=== PATIENT | female | born 1980 | race Native Hawaiian/Other Pacific Islander ===

== ENCOUNTER 2018-11-18 09:33 | Emergency (ER) | payer OTHER ==
[2018-11-18 09:51] VITALS: BP 125/84; O2SAT 98
[2018-11-18 11:13] LABS: BASO % 0.3 % (0.0-2.0); EOS # 0.1 K/uL (0.0-0.7); EOS % 2.4 % (0.0-4.0); LYMPH # 1.3 K/uL (1.0-4.3); LYMPH % 22.7 % (20.0-40.0); MEAN CELL VOLUME 91.2 fl (81.0-99.0); MEAN CORPUSCULAR HEMOGLOBIN 31.8 pg (27.0-31.0); MEAN CORPUSCULAR HGB CONC 34.9 g/dL (33.0-37.0); MEAN PLATELET VOLUME 8.5 fl (7.2-11.7); MONO # 0.4 K/uL (0.0-0.8); MONO % 6.6 % (0.0-10.0); NEUT # 3.9 K/uL (1.8-7.0); RBC 4.4 Mil/uL (3.80-5.20); RED CELL DISTRIBUTION WIDTH 13.5 % (11.5-14.5); WHITE BLOOD COUNT 5.8 K/uL (4.8-10.8)
[2018-11-18 11:29] LABS: ALB/GLOB RATIO 1.4 (1.0-2.1); ALBUMIN 4.6 g/dL (3.5-5.0); ALT/SGPT 24 U/L (9-52); AST/SGOT 27 U/L (14-36); BLOOD UREA NITROGEN 7 mg/dl (7-17); CALCIUM 9.3 mg/dL (8.4-10.2); GFR NON-AFRICAN AMERICAN > 60
[2018-11-18 11:32] LABS: SQUAMOUS EPITHIAL 1 /hpf (0-5); URINE BACTERIA RARE (<OCC); URINE BILIRUBIN NEGATIVE (NEGATIVE); URINE BLOOD LARGE (NEGATIVE); URINE CLARITY CLEAR (Clear); URINE COLOR STRAW (YELLOW); URINE GLUCOSE (UA) NEG (NEGATIVE); URINE LEUKOCYTE ESTERASE NEG Leu/uL (Negative); URINE PROTEIN NEGATIVE (NEGATIVE); URINE UROBILINOGEN 0.2-1.0 mg/dL (0.2-1.0)
--- NOTE | 2018-11-18 12:42 | US ---
Date of service: 11/18/2018 HISTORY: Irregular and heavy vaginal bleeding LMP 10/30/2018. COMPARISON: None available. TECHNIQUE: Transvaginal only. Real -time technique with 2D, duplex and color Doppler FINDINGS: UTERUS: Measures 4.2 x 5 x 8.2 cm. Normal in size and appearance. No fibroid or other mass lesion seen. ENDOMETRIUM: Measures 6.1 mm in diameter. No ultrasound findings to suggest gestational sac, fluid, debris, mass or polyp or other pathologic process within the endometrium. CERVIX: No cervical abnormality identified. RIGHT OVARY: Measures 1.9 x 2.6 x 2.7 cm. No solid mass. Normal flow. Multiple subcentimeter follicles. LEFT OVARY: Measures 1 x 2.2 x 3.1 cm. No solid mass. Normal flow. Multiple subcentimeter follicles. FREE FLUID: No significant free fluid noted. OTHER FINDINGS: None. IMPRESSION: Unremarkable pelvic ultrasound.
--- NOTE | 2018-11-18 12:53 | ED PDOC ---
HPI: Female Pain Time Seen by Provider: 11/18/18 10:34 Chief Complaint (Nursing): Female Genitourinary History Per: Patient History/Exam Limitations: no limitations Onset/Duration Of Symptoms: Days Additional Complaint(s): 38 yo F with bipolar disorder presents with abnormal vaginal bleeding and lower abdominal pain. Pt was seen by her PMD at [facility] and told she could of had a miscarriage and to go to the hospital for possible D&C. Pt is on oral contraceptive pills and takes them properly. She says on 10/30 she had one day of heavy bleeding, which was when she was due for her period, which usually lasts for 3 days, but the bleeding stopped after one day. She then had vaginal spotting on 11/12 followed by heavy vaginal bleeding 11/13 until yesterday 11/17. She reports 2 days ago she had a lot of clots and lower abdominal and back pain. She reports bleeding has subsided, now is just spotting, but pain continues intermittently. SHe has not taken anything for pain. She reports feeling tired and decrease appetite. Pt is sexually active, does not use condoms, denies concern or wanting to be tested for STDs, denies urinary symptoms or abnormal vaginal discharge. Pt has never been and has not taken a test. PMD: [facility] Abnormal Vaginal Bleeding: Yes Past Medical History Reviewed: Historical Data, Nursing Documentation, Vital Signs Vital Signs: Last Vital Signs Temp 97 F L 11/18/18 09:47 Pulse 99 H 11/18/18 09:47 Resp 18 11/18/18 09:47 BP 125/84 11/18/18 09:47 Pulse Ox 98 11/18/18 09:47 - Medical History PMH: Bipolar Disorder - Surgical History Other surgeries: wisdom teeth - Family History Family History: States: No Known Family Hx - Home Medications Home Medications: Ambulatory Orders Medication Instructions Recorded Naproxen 500 mg PO BID #20 tab 11/18/18 - Allergies Allergies/Adverse Reactions: Allergies Allergy/AdvReac Type Severity Reaction Status Date / Time No Known Allergies Allergy Verified 11/18/18 09:47 Review of Systems Constitutional: Negative for: Fever Gastrointestinal: Positive for: Abdominal Pain. Negative for: Nausea, Vomiting Genitourinary Female: Positive for: Vaginal Bleeding. Negative for: Dysuria, Frequency Physical Exam - Reviewed Nursing Documentation Reviewed: Yes Vital Signs Reviewed: Yes - Physical Exam Comments: SKIN: Warm, dry; (-) cyanosis. ENMT: moist mucus membranes CHEST AND RESPIRATORY: (-) wheezing; (-) rales, (-) rhonchi, (-) rub; breath sounds equal bilaterally. HEART AND CARDIOVASCULAR: (-) irregularity; (-) murmur, (-) gallop. ABDOMEN AND GI: Soft, normal bowel sounds, (+) diffuse lower abdominal tenderness. (-)rebound (-) guarding, (-)organomegaly PELVIC: Normal external genitalia; (-) vesicles, (-) ulcers. (-) vaginal discharge; (-) cervical discharge, (+)mild dark blood in vagina, no clots, (-) pain on cervical motion. Uterus normal, (+) bilateral adnexal tenderness. A female RN (Hallie) was present with me during the entire examination. EXTREMITIES: (-) deformity. - Laboratory Results Result Diagrams: 11/18/18 10:35 11/18/18 10:35 Lab Results: Total Bilirubin 0.4 mg/dl (0.2-1.3) 11/18/18 10:35 AST 27 U/L (14-36) 11/18/18 10:35 ALT 24 U/L (9-52) 11/18/18 10:35 Alkaline Phosphatase 50 U/L (38-126) 11/18/18 10:35 Total Protein 8.0 G/DL (6.3-8.2) 11/18/18 10:35 Albumin 4.6 g/dL (3.5-5.0) 11/18/18 10:35 Globulin 3.3 gm/dL (2.2-3.9) 11/18/18 10:35 Albumin/Globulin Ratio 1.4 (1.0-2.1) 11/18/18 10:35 Urine Color Straw (YELLOW) 11/18/18 10:50 Urine Clarity Clear (Clear) 11/18/18 10:50 Urine pH 7.0 (5.0-8.0) 11/18/18 10:50 Ur Specific [place] < 1.005 (1.003-1.030) 11/18/18 10:50 Urine Protein Negative mg/dL (NEGATIVE) 11/18/18 10:50 Urine Glucose (UA) Neg mg/dL (NEGATIVE) 11/18/18 10:50 Urine Ketones Negative mg/dL (NEGATIVE) 11/18/18 10:50 Urine Blood Large (NEGATIVE) 11/18/18 10:50 Urine Nitrate Negative (NEGATIVE) 11/18/18 10:50 Urine Bilirubin Negative (NEGATIVE) 11/18/18 10:50 Urine Urobilinogen 0.2-1.0 mg/dL (0.2-1.0) 11/18/18 10:50 Ur Leukocyte Esterase Neg Ward/uL (Negative) 11/18/18 10:50 Urine RBC (Auto) 3 /hpf (0-3) 11/18/18 10:50 Urine Microscopic WBC 1 /hpf (0-5) 11/18/18 10:50 Ur Squamous Epith Cells 1 /hpf (0-5) 11/18/18 10:50 Urine Bacteria Rare (<OCC) 11/18/18 10:50 Beta HCG, Quant < 2.39 mIU/mL 11/18/18 10:35 Urine dip results: Positive for: Blood - ECG O2 Sat by Pulse Oximetry: 98 Medical Decision Making Medical Decision Makin:40 38 yo F with abnormal vaginal bleeding -- UA, urine preg -- CBC, CMP, type and screen, beta hcg -- Tylenol PO -- US -- re eval 12:20 pt is back for US and reports worsening LLQ pain, will give Toradol IV as urine preg was negative 12:40 US report Date of service: 11/18/2018 HISTORY: Irregular and heavy vaginal bleeding LMP 10/30/2018. COMPARISON: None available. TECHNIQUE: Transvaginal only. Real -time technique with 2D, duplex and color Doppler FINDINGS: UTERUS: Measures 4.2 x 5 x 8.2 cm. Normal in size and appearance. No fibroid or other mass lesion seen. ENDOMETRIUM: Measures 6.1 mm in diameter. No ultrasound findings to suggest gestational sac, fluid, debris, mass or polyp or other pathologic process within the endometrium. CERVIX: No cervical abnormality identified. RIGHT OVARY: Measures 1.9 x 2.6 x 2.7 cm. No solid mass. Normal flow. Multiple subcentimeter follicles. LEFT OVARY: Measures 1 x 2.2 x 3.1 cm. No solid mass. Normal flow. Multiple subcentimeter follicles. FREE FLUID: No significant free fluid noted. OTHER FINDINGS: None. IMPRESSION: Unremarkable pelvic ultrasound. 13:45 on re eval pt is feeling better, pain is now gone, abdomen is soft and non tender pt's hgb is 14, no signs of anemia, VSS, bleeding has subsided, beta hcg is <2.4, US shows no abnormalities, pt is stable for dc pt with dysfunctional uterine bleeding Discussed results, diagnosis, treatment, return precautions and f/u with pt who is understanding, in agreement and stable for dc Disposition - Clinical Impression Clinical Impression: Dysfunctional uterine bleeding - Patient ED Disposition Is Patient to be Admitted: No Counseled Patient/Family Regarding: Studies Performed, Diagnosis, Need For Followup, Rx Given - Disposition Referrals: Bozena Rodríguez MD [Staff Provider] - Disposition: Routine/Home Disposition Time: 14:00 Condition: IMPROVED Additional Instructions: The emergency medical care you received today was directed at your acute symptoms. If you were prescribed any medication, please fill it and take as directed. It may take several days for your symptoms to resolve. Return to the Emergency Department if your symptoms worsen, do not improve, or if you have any other problems. Please contact your doctor in 2 days for re-evaluation and follow up / or call one of the physicians/clinics you have been referred to that are listed on the Patient Visit Information form that is included in your discharge packet. Bring any paperwork you were given at discharge with you along with any medications you are taking to your follow up visit. Our treatment cannot replace ongoing medical care by a primary care provider (PCP) outside of the emergency de partment. Prescriptions: Naproxen 500 mg PO BID #20 tab Instructions: Absent or Irregular Periods, Heavy Periods Forms: [employer] ([place]), [facility] ED School/Work Excuse Print Language: CHINESE - POA Present On Arrival: None
[2018-11-18 14:20] VITALS: PULSE 88; RESP 17; TEMP 98.3
== END 2018-11-18 14:21 | disposition home or self-care (01) ==
LOC: H.ER 09:33
DX: N93.8 Other specified abnormal uterine and vaginal bleeding (principal); Z86.59 Personal history of other mental and behavioral disorders
CPT/HCPCS: 76830; 76856; 80053; 81003; 81025; 84702; 85025; 86850; 86900; 96374; 99284; J1885